=== PATIENT | male | born 1955 | race American Indian/Alaskan Native ===

== ENCOUNTER 2016-12-26 11:02 | Outpatient (CLI) | payer BC ==
--- NOTE | 2016-12-26 11:38 | XRay Report ---
Lumbar spine 3 views: History: Back pain. Findings: Normal height of vertebral bodies. Decrease in height of L1-L2 with degenerative changes at the adjacent endplates. Degenerative changes of the facet joints lumbosacral interspace. Calcified abdominal aorta without evidence of aneurysm. Impression: Degenerative changes lumbar spine.
== END 2016-12-26 11:03 | disposition home or self-care (01) ==
LOC: SPVIMAG 11:02
DX: M47.896 Other spondylosis, lumbar region (principal); I70.0 Atherosclerosis of aorta
CPT/HCPCS: 72100